=== PATIENT | female | born 1935 | race Caucasian/White ===

== ENCOUNTER 2018-08-25 12:28 | Inpatient (IN) ==
[2018-08-25] MEDS ORDERED: MORPHINE 4 MG/1 ML VIAL IV STA (14:07)
[2018-08-25] MEDS ORDERED: FUROSEMIDE 100 MG/10 ML VIAL IV STA (14:07)
[2018-08-25] MEDS ORDERED: ONDANSETRON 4 MG/2 ML VIAL IV STA (14:07)
[2018-08-25] MEDS ORDERED: DIPH/TET/ACEL PERT BOOSTER VACCINE 0.5 ML VIAL IM ONE (14:07)
[2018-08-25] MEDS ORDERED: ALBUTEROL/IPRATROPIUM 3 ML NEB RESP TX STA (14:07)
[2018-08-25] MEDS ORDERED: ceFAZolin 1,000 MG VIAL IM ONE (14:07)
[2018-08-25 16:03] LABS: Apearance,Urine CLEAR (Clear); Bilirubin,Urine Negative (Negative); Blood, Urine Negative (Negative); Glucose,Urine (UA) Negative (Negative); Hyaline Casts,Urine 3 /LPF (0-3); Ketones,Urine Negative (Negative); Mucus,Urine Occasional /LPF (Occasional); Nitrite,Urine Negative (Negative); Protein,Urine Negative; RBC,Urine <1 /HPF (0-4); Squamous Epithelial Cell,Urine Occasional /HPF (0-10); Urine Color Yellow (Yellow); Urine Urobilinogen < 2.0 EU/DL (0.2-1.0); WBC,Urine <1 /HPF (0-6)
[2018-08-25 16:15] LABS: INR 2.1
[2018-08-25 16:17] LABS: Basophils % 0.3 % (0.0-0.8); Eosinophils # 0.2 10*3/uL (0.0-0.87); Eosinophils % 1.8 % (0.00-10.9); Hematocrit 27.3 VOL% (35.7-47.0); Immature Granulocytes % 2.1 %; Immature Granulocytes Absolute 0.23 #; Lymphocytes # 0.8 10*3/uL (1.4-4.0); Lymphocytes % 6.9 % (21.3-54.2); Mean Corpuscular HGB Conc 27.8 GM/DL (32-36); Mean Corpuscular Hemoglobin 28 PG (27-34); Mean Corpuscular Volume 99.6 FL (87-102); Mean Platelet Volume 11.7 FL (9.6-12.0); Monocytes % 9.4 % (1.7-12.7); NRBC # 0.02 10*3/uL; Neutrophils # 8.7 10*3/uL (1.4-7.4); Neutrophils % 79.5 % (38.7-73.9); Platelet Count 159 T/CUMM (130-400); Red Blood Count 2.74 MC/CUMM (3.8-5.5); Red Cell Distribution Width 17.5 % (9.3-17.3); White Blood Count 10.9 T/CUMM (4-12)
[2018-08-25 16:20] LABS: Hemoglobin 7.6 GM/DL (12.0-16.0)
[2018-08-25 16:21] LABS: PT Patient Result 22.8 SECS
[2018-08-25 16:27] LABS: Hypochromasia 1+; Microcytosis 1+
[2018-08-25 16:28] LABS: Platelet Estimate Adequate
[2018-08-25 16:36] LABS: Macrocytosis 1+
[2018-08-25 17:30] LABS: Albumin 3.3 G/DL (3.4-5.0); Bilirubin,Total 0.8 MG/DL (0.2-1.0); Calcium 8.5 MG/DL (8.5-10.1); Total Protein 7.4 G/DL (6.4-8.3)
[2018-08-25] MEDS ORDERED: ONDANSETRON 4 MG/2 ML VIAL IV PRN (18:24)
[2018-08-25] MEDS ORDERED: DEXTROSE 50% 25 GM/50 ML SYRINGE IV PRN (18:24)
[2018-08-25] MEDS ORDERED: GLUCAGON 1 MG VIAL IM PRN ×2 (18:24→20:35)
[2018-08-25] MEDS ORDERED: MAGNESIUM SULF RIDER 4 GM in PREMIX 1 EACH IV PRN (18:24)
[2018-08-25] MEDS ORDERED: MAGNESIUM SULF RIDER 2 GM in PREMIX 1 EACH IV PRN (18:24)
[2018-08-25] MEDS ORDERED: DEXTROSE 50% 25 GM/50 ML VIAL IV PRN (20:35)
[2018-08-25] MEDS ORDERED: SIMVASTATIN 20 MG TABLET PO SCH (21:00)
[2018-08-25] MEDS: DICLOFENAC 1% GEL 100 GM TUBE TOP SCH (21:50)
[2018-08-25] MEDS: DABIGATRAN 75 MG CAPSULE PO SCH (21:50)
[2018-08-25] MEDS: CARVEDILOL 3.125 MG TABLET PO SCH (21:50)
[2018-08-25] MEDS: INSULIN REGULAR 100 UNIT/ML SUBCUT SCH (21:50)
[2018-08-25] MEDS: GABAPENTIN 400 MG CAPSULE PO SCH (21:50)
[2018-08-25] MEDS: fentaNYL 25 MCG/HR PATCH TRANSDERM SCH (21:53)
[2018-08-26] MEDS ORDERED: LEVOTHYROXINE 150 MCG TABLET PO SCH (07:00)
[2018-08-26 07:24] LABS: Basophils % 0.2 % (0.0-0.8); Eosinophils # 0.3 10*3/uL (0.0-0.87); Eosinophils % 2.4 % (0.00-10.9); Hematocrit 27.1 VOL% (35.7-47.0); Immature Granulocytes % 1.9 %; Lymphocytes % 9.5 % (21.3-54.2); Mean Corpuscular Hemoglobin 28 PG (27-34); Mean Corpuscular Volume 99.3 FL (87-102); Mean Platelet Volume 10.9 FL (9.6-12.0); Monocytes % 8.9 % (1.7-12.7); NRBC # 0.02 10*3/uL; Neutrophils # 8.3 10*3/uL (1.4-7.4); Neutrophils % 77.1 % (38.7-73.9); Platelet Count 152 T/CUMM (130-400); Red Blood Count 2.73 MC/CUMM (3.8-5.5); Red Cell Distribution Width 17.3 % (9.3-17.3); White Blood Count 10.7 T/CUMM (4-12)
[2018-08-26 07:26] LABS: Hemoglobin 7.6 GM/DL (12.0-16.0)
[2018-08-26 07:36] LABS: Calcium 8.7 MG/DL (8.5-10.1); Osmolality,Calculated 301.7 MOS/KG (273-304); Potassium 4.9 MMOL/L (3.5-5.1)
[2018-08-26 07:56] LABS: Hypochromasia 1+; Platelet Estimate Adequate
[2018-08-26 07:57] LABS: Microcytosis Slight
[2018-08-26] MEDS ORDERED: DEXTROSE 50% 25 GM/50 ML VIAL IV PRN (07:57)
[2018-08-26] MEDS ORDERED: GLUCAGON 1 MG VIAL IM PRN (07:57)
[2018-08-26] MEDS ORDERED: RALOXIFENE 60 MG TABLET PO SCH (09:00)
[2018-08-26] MEDS ORDERED: PANTOPRAZOLE 40 MG TABLET PO SCH (09:00)
[2018-08-26] MEDS ORDERED: ARIPiprazole 2 MG TABLET PO SCH (09:00)
[2018-08-26] MEDS ORDERED: SERTRALINE 100 MG TABLET PO SCH (09:00)
[2018-08-26] MEDS ORDERED: POTASSIUM CHLORIDE 20 MEQ TABLET PO SCH (09:00)
[2018-08-26] MEDS ORDERED: LOSARTAN 50 MG TABLET PO SCH (09:00)
[2018-08-26] MEDS: DABIGATRAN 75 MG CAPSULE PO SCH (09:16)
[2018-08-26] MEDS: GABAPENTIN 400 MG CAPSULE PO SCH (09:17)
[2018-08-26] MEDS: FUROSEMIDE 40 MG/4 ML VIAL IV SCH ×2 (09:18→15:16)
[2018-08-26] MEDS: CARVEDILOL 3.125 MG TABLET PO SCH (09:18)
[2018-08-26] MEDS: INSULIN REGULAR 100 UNIT/ML SUBCUT SCH ×4 (09:18→21:08)
[2018-08-26] MEDS: DICLOFENAC 1% GEL 100 GM TUBE TOP SCH ×4 (09:19→21:23)
[2018-08-26] MEDS ORDERED: ASPIRIN CHEW 81 MG TABLET PO ONE (10:44)
[2018-08-26] MEDS ORDERED: NITROGLYCERIN SL 0.4 MG TABLET SL PRN (10:44)
[2018-08-26] MEDS ORDERED: ASPIRIN 325 MG TABLET ONE (10:47)
[2018-08-26] MEDS ORDERED: FUROSEMIDE 40 MG/4 ML VIAL IV ONE (10:54)
[2018-08-26 11:21] LABS: ABG Base Excess 5.3 MMOL/L (-2.5-2.5); ABG HCO3 29.1 MMOL/L (20-26); ABG Oxygen Saturation 91.6 % (95-100); ABG PH 7.287 (7.35-7.45); ABG PO2 66.6 MM HG (80-95); ABG TCO2 31.6 MMOL/L (23-27)
[2018-08-26 11:24] LABS: ABG PCO2 70.1 MM HG (35-48)
[2018-08-26] MEDS: PIPERACILLIN/TAZOBACTAM 3,375 MG in SODIUM CHLORIDE 0.9% 100 ML IV SCH ×2 (12:29→23:39)
[2018-08-26 14:13] LABS: Apearance,Urine CLEAR (Clear); Bacteria,Urine Occasional /HPF (Few); Bilirubin,Urine Negative (Negative); Blood, Urine Moderate mg/dL (Negative); Glucose,Urine (UA) Negative (Negative); Hyaline Casts,Urine 3 /LPF (0-3); Ketones,Urine Negative (Negative); Mucus,Urine Occasional /LPF (Occasional); Nitrite,Urine Negative (Negative); Protein,Urine Negative; RBC,Urine 16 /HPF (0-4); Squamous Epithelial Cell,Urine Occasional /HPF (0-10); Urine Color Yellow (Yellow); Urine Specific Gravity 1.009 (1.001-1.035); Urine Urobilinogen < 2.0 EU/DL (0.2-1.0); WBC,Urine 7 /HPF (0-6)
[2018-08-26] MEDS ORDERED: ENOXAPARIN 100 MG/ML SYRINGE SUBCUT SCH (14:30)
[2018-08-26] MEDS: ENOXAPARIN 100 MG/ML SYRINGE SUBCUT SCH (15:15)
[2018-08-26 16:08] LABS: ABG Base Excess 7.6 MMOL/L (-2.5-2.5); ABG HCO3 34.6 MMOL/L (20-26); ABG Oxygen Saturation 92.7 % (95-100); ABG PCO2 66.5 MM HG (35-48); ABG PH 7.334 (7.35-7.45); ABG PO2 71.4 MM HG (80-95); ABG TCO2 36.6 MMOL/L (23-27); Allen Test Positive; Pt O2 Delivery Device BIPAP
[2018-08-26] MEDS ORDERED: NOREPINEPHRINE 8 MG in SODIUM CHLORIDE 0.9% 242 ML IV PRN (23:41)
[2018-08-26 23:45] LABS: Hematocrit 23.6 VOL% (35.7-47.0); Hemoglobin 6.6 GM/DL (12.0-16.0)
[2018-08-27] MEDS ORDERED: SODIUM CHLORIDE 0.9% 1,000 ML IV PRN (00:02)
[2018-08-27 06:26] LABS: Basophils % 0.2 % (0.0-0.8); Eosinophils # 0.2 10*3/uL (0.0-0.87); Eosinophils % 2.5 % (0.00-10.9); Hematocrit 28.8 VOL% (35.7-47.0); Hemoglobin 8.3 GM/DL (12.0-16.0); Immature Granulocytes % 4.4 %; Lymphocytes # 0.9 10*3/uL (1.4-4.0); Lymphocytes % 9.4 % (21.3-54.2); Mean Corpuscular HGB Conc 28.8 GM/DL (32-36); Mean Corpuscular Hemoglobin 28 PG (27-34); Mean Corpuscular Volume 97.6 FL (87-102); Mean Platelet Volume 10.7 FL (9.6-12.0); Monocytes # 0.9 10*3/uL (0.11-0.8); Monocytes % 9.9 % (1.7-12.7); NRBC # 0.02 10*3/uL; Neutrophils # 6.7 10*3/uL (1.4-7.4); Neutrophils % 73.6 % (38.7-73.9); Platelet Count 148 T/CUMM (130-400); Red Blood Count 2.95 MC/CUMM (3.8-5.5); Red Cell Distribution Width 18.4 % (9.3-17.3); White Blood Count 9.1 T/CUMM (4-12)
[2018-08-27] MEDS: LEVOTHYROXINE 100 MCG VIAL IV SCH (06:26)
[2018-08-27 06:32] LABS: INR 1.7
[2018-08-27 06:41] LABS: Calcium 8.4 MG/DL (8.5-10.1); Osmolality,Calculated 299.8 MOS/KG (273-304); Potassium 4.8 MMOL/L (3.5-5.1)
[2018-08-27 07:11] LABS: % Iron Saturation 14.8 % (18-50); Ferritin 64.7 ng/ml (8-252)
[2018-08-27 07:21] LABS: Hypochromasia 1+; Microcytosis Slight; Platelet Estimate Adequate
[2018-08-27] MEDS: INSULIN REGULAR 100 UNIT/ML SUBCUT SCH ×4 (07:33→20:24)
[2018-08-27 08:10] LABS: Folate 11.4 NG/ML (5.4-24.0)
[2018-08-27] MEDS: PANTOPRAZOLE 40 MG VIAL IV SCH (08:24)
[2018-08-27] MEDS: FUROSEMIDE 40 MG/4 ML VIAL IV SCH ×2 (08:24→16:33)
[2018-08-27] MEDS: DICLOFENAC 1% GEL 100 GM TUBE TOP SCH ×4 (08:27→20:25)
[2018-08-27] MEDS: PIPERACILLIN/TAZOBACTAM 3,375 MG in SODIUM CHLORIDE 0.9% 100 ML IV SCH ×2 (12:51→23:43)
[2018-08-27] MEDS: ENOXAPARIN 100 MG/ML SYRINGE SUBCUT SCH (15:32)
[2018-08-28 04:56] LABS: Basophils % 0.2 % (0.0-0.8); Eosinophils # 0.3 10*3/uL (0.0-0.87); Eosinophils % 3.3 % (0.00-10.9); Hematocrit 28.1 VOL% (35.7-47.0); Hemoglobin 8.2 GM/DL (12.0-16.0); Immature Granulocytes % 2.3 %; Immature Granulocytes Absolute 0.22 #; Lymphocytes % 10.1 % (21.3-54.2); Mean Corpuscular HGB Conc 29.2 GM/DL (32-36); Mean Corpuscular Hemoglobin 28 PG (27-34); Mean Corpuscular Volume 96.2 FL (87-102); Mean Platelet Volume 11.1 FL (9.6-12.0); Monocytes % 10.6 % (1.7-12.7); Neutrophils # 7.1 10*3/uL (1.4-7.4); Neutrophils % 73.5 % (38.7-73.9); Platelet Count 154 T/CUMM (130-400); Red Blood Count 2.92 MC/CUMM (3.8-5.5); Red Cell Distribution Width 18.2 % (9.3-17.3); White Blood Count 9.7 T/CUMM (4-12)
[2018-08-28 05:09] LABS: Calcium 8.2 MG/DL (8.5-10.1); Osmolality,Calculated 301.7 MOS/KG (273-304); Potassium 3.8 MMOL/L (3.5-5.1)
[2018-08-28] MEDS: LEVOTHYROXINE 100 MCG VIAL IV SCH (06:14)
[2018-08-28] MEDS: INSULIN REGULAR 100 UNIT/ML SUBCUT SCH ×4 (08:11→20:42)
[2018-08-28] MEDS: DICLOFENAC 1% GEL 100 GM TUBE TOP SCH ×4 (08:17→20:42)
[2018-08-28] MEDS: PANTOPRAZOLE 40 MG VIAL IV SCH (08:17)
[2018-08-28] MEDS: FUROSEMIDE 40 MG/4 ML VIAL IV SCH (08:18)
[2018-08-28] MEDS: PIPERACILLIN/TAZOBACTAM 3,375 MG in SODIUM CHLORIDE 0.9% 100 ML IV SCH ×2 (12:35→23:47)
[2018-08-28] MEDS: ENOXAPARIN 100 MG/ML SYRINGE SUBCUT SCH (15:24)
[2018-08-28] MEDS: FUROSEMIDE 40 MG TABLET PO SCH (15:24)
[2018-08-28] MEDS: fentaNYL 25 MCG/HR PATCH TRANSDERM SCH (23:58)
[2018-08-29] MEDS: LEVOTHYROXINE 100 MCG VIAL IV SCH (06:01)
[2018-08-29] MEDS: INSULIN REGULAR 100 UNIT/ML SUBCUT SCH ×2 (07:28→12:18)
[2018-08-29] MEDS: DICLOFENAC 1% GEL 100 GM TUBE TOP SCH ×2 (08:34→12:26)
[2018-08-29] MEDS: PANTOPRAZOLE 40 MG VIAL IV SCH (08:34)
[2018-08-29] MEDS: FUROSEMIDE 40 MG TABLET PO SCH (08:34)
[2018-08-29 12:14] VITALS: BP 160/77
[2018-08-29] MEDS: PIPERACILLIN/TAZOBACTAM 3,375 MG in SODIUM CHLORIDE 0.9% 100 ML IV SCH (12:23)
[2018-08-29] MEDS ORDERED: DABIGATRAN 75 MG CAPSULE PO SCH (13:30)
== END 2018-08-29 15:28 | disposition swing bed (61) | DRG 291 ==
LOC: N.ED 12:28 → SUATTDRO 18:25 → N.EDINP 18:25 → SUPCPDRO 18:25 → N.5E 19:49 → N.CC 08-26 11:24 → N.4E 08-27 19:06
PROVIDERS: ADMIT Internal Medicine; ATTEND Internal Medicine

== ENCOUNTER 2019-07-27 14:59 | Inpatient (IN) ==
[2019-07-27] MEDS ORDERED: FUROSEMIDE 40 MG/4 ML VIAL IV STA (15:46)
[2019-07-27 15:57] LABS: Basophils % 0.2 % (0.0-0.8); Eosinophils # 0.3 10*3/uL (0.0-0.87); Eosinophils % 3.2 % (0.00-10.9); Hematocrit 38.6 VOL% (35.7-47.0); Immature Granulocytes % 1.6 %; Immature Granulocytes Absolute 0.14 #; Lymphocytes # 0.8 10*3/uL (1.4-4.0); Lymphocytes % 9.3 % (21.3-54.2); Mean Corpuscular HGB Conc 28.5 GM/DL (32-36); Mean Corpuscular Volume 99.2 FL (87-102); Monocytes % 9.7 % (1.7-12.7); Platelet Count 140 T/CUMM (130-400); Red Blood Count 3.89 MC/CUMM (3.8-5.5); Red Cell Distribution Width 15.7 % (9.3-17.3); White Blood Count 8.8 T/CUMM (4-12)
[2019-07-27 16:15] LABS: PT Patient Result 10.5 SECS (9.6-12.2); Partial Thromboplastin Time 25.8 SECS (20.8-36.0)
[2019-07-27 16:20] LABS: Albumin 3.5 G/DL (3.4-5.0); Bilirubin,Total 0.7 MG/DL (0.2-1.0); Calcium 8.7 MG/DL (8.5-10.1); Osmolality,Calculated 286.3 MOS/KG (273-304); Total Protein 7.2 G/DL (6.4-8.3)
[2019-07-27 16:47] LABS: ABG Base Excess 5.6 MMOL/L (-2.5-2.5); ABG Oxygen Saturation 72.9 % (95-100); ABG PCO2 64.5 MM HG (35-48); ABG PH 7.325 (7.35-7.45); ABG PO2 41.5 MM HG (80-95); ABG TCO2 30.6 MMOL/L (23-27)
[2019-07-27] MEDS ORDERED: LEVOFLOXACIN INJ 500 MG in PREMIX 1 EACH IV STA (16:54)
[2019-07-27] MEDS ORDERED: DEXTROSE 10% 250 ML BAG IV PRN (20:20)
[2019-07-27] MEDS ORDERED: GLUCAGON 1 MG VIAL IM PRN (20:20)
[2019-07-27] MEDS: ENOXAPARIN 40 MG/0.4 ML SYRINGE SUBCUT SCH (21:26)
[2019-07-27] MEDS: PANTOPRAZOLE 40 MG VIAL IV SCH (21:27)
[2019-07-27] MEDS: INSULIN LISPRO 100 UNIT/ML SUBCUT SCH (21:27)
[2019-07-27] MEDS: SIMVASTATIN 20 MG TABLET PO SCH (21:32)
[2019-07-27] MEDS: GABAPENTIN 400 MG CAPSULE PO SCH (21:32)
[2019-07-28] MEDS ORDERED: ALBUTEROL/IPRATROPIUM 3 ML NEB RESP TX PRN (04:59)
[2019-07-28 06:15] LABS: Calcium 8.9 MG/DL (8.5-10.1); Osmolality,Calculated 275.8 MOS/KG (273-304)
[2019-07-28] MEDS: LEVOTHYROXINE 150 MCG TABLET PO SCH (06:37)
[2019-07-28 06:38] LABS: Basophils % 0.4 % (0.0-0.8); Eosinophils # 0.3 10*3/uL (0.0-0.87); Eosinophils % 4.1 % (0.00-10.9); Hematocrit 34.6 VOL% (35.7-47.0); Immature Granulocytes % 1.4 %; Immature Granulocytes Absolute 0.11 #; Lymphocytes # 0.9 10*3/uL (1.4-4.0); Lymphocytes % 11.3 % (21.3-54.2); Mean Corpuscular HGB Conc 29.2 GM/DL (32-36); Mean Corpuscular Volume 96.9 FL (87-102); Mean Platelet Volume 11.2 FL (9.6-12.0); Monocytes % 11.3 % (1.7-12.7); Neutrophils % 71.5 % (38.7-73.9); Platelet Count 114 T/CUMM (130-400); Red Blood Count 3.57 MC/CUMM (3.8-5.5); Red Cell Distribution Width 15.7 % (9.3-17.3); White Blood Count 7.6 T/CUMM (4-12)
[2019-07-28 06:40] LABS: Hemoglobin 10.1 GM/DL (12.0-16.0)
[2019-07-28] MEDS ORDERED: FUROSEMIDE 40 MG/4 ML VIAL IV SCH ×2 (08:00→11:30)
[2019-07-28 08:06] LABS: Apearance,Urine CLEAR (Clear); Bilirubin,Urine Negative (Negative); Blood, Urine Negative (Negative); Glucose,Urine (UA) Negative (Negative); Ketones,Urine Negative (Negative); Mucus,Urine Occasional /LPF (Occasional); Nitrite,Urine Negative (Negative); Protein,Urine Negative; RBC,Urine 2 /HPF (0-4); Squamous Epithelial Cell,Urine Occasional /HPF (0-10); Urine Color Yellow (Yellow); Urine Specific Gravity 1.009 (1.001-1.035); Urine Urobilinogen < 2.0 EU/DL (0.2-1.0); WBC,Urine <1 /HPF (0-6)
[2019-07-28] MEDS ORDERED: ENOXAPARIN 40 MG/0.4 ML SYRINGE SUBCUT SCH (09:00)
[2019-07-28] MEDS: INSULIN LISPRO 100 UNIT/ML SUBCUT SCH ×4 (09:23→21:15)
[2019-07-28] MEDS: ARIPiprazole 2 MG TABLET PO SCH (09:47)
[2019-07-28] MEDS: GABAPENTIN 400 MG CAPSULE PO SCH ×3 (09:47→21:15)
[2019-07-28] MEDS: SERTRALINE 100 MG TABLET PO SCH (09:48)
[2019-07-28 11:41] LABS: ABG Base Excess 7.1 MMOL/L (-2.5-2.5); ABG HCO3 30.8 MMOL/L (20-26); ABG Oxygen Saturation 90.4 % (95-100); ABG PCO2 56.6 MM HG (35-48); ABG PH 7.383 (7.35-7.45); ABG PO2 57.4 MM HG (80-95); ABG TCO2 30.7 MMOL/L (23-27); Allen Test Positive; Pt O2 Delivery Device BIPAP
[2019-07-28] MEDS ORDERED: NITROGLYCERIN SL 0.4 MG TABLET SL PRN (14:24)
[2019-07-28] MEDS: methylPREDNISolone SOD SUC 40 MG/1 ML VIAL IV SCH ×2 (15:19→23:33)
[2019-07-28] MEDS: FUROSEMIDE 100 MG/10 ML VIAL IV SCH (15:19)
[2019-07-28] MEDS: LEVOFLOXACIN INJ 250 MG in PREMIX 1 EACH IV SCH (17:19)
[2019-07-28] MEDS: PANTOPRAZOLE 40 MG VIAL IV SCH (17:21)
[2019-07-28] MEDS: SIMVASTATIN 20 MG TABLET PO SCH (21:15)
[2019-07-28] MEDS: ENOXAPARIN 40 MG/0.4 ML SYRINGE SUBCUT SCH (21:15)
[2019-07-29 04:57] LABS: Basophils % 0.3 % (0.0-0.8); Immature Granulocytes % 2.1 %; Immature Granulocytes Absolute 0.14 #; Lymphocytes # 0.6 10*3/uL (1.4-4.0); Lymphocytes % 8.1 % (21.3-54.2); Mean Corpuscular HGB Conc 29.1 GM/DL (32-36); Mean Corpuscular Volume 95.9 FL (87-102); Mean Platelet Volume 11.3 FL (9.6-12.0); Monocytes % 1.6 % (1.7-12.7); Neutrophils % 87.9 % (38.7-73.9); Platelet Count 138 T/CUMM (130-400); Red Cell Distribution Width 15.2 % (9.3-17.3); White Blood Count 6.8 T/CUMM (4-12)
[2019-07-29 05:12] LABS: Hematocrit 37.6 VOL% (35.7-47.0); Hemoglobin 10.9 GM/DL (12.0-16.0)
[2019-07-29 05:23] LABS: Calcium 9.5 MG/DL (8.5-10.1); Osmolality,Calculated 283.7 MOS/KG (273-304)
[2019-07-29] MEDS: LEVOTHYROXINE 150 MCG TABLET PO SCH (06:51)
[2019-07-29] MEDS: ARIPiprazole 2 MG TABLET PO SCH (09:38)
[2019-07-29] MEDS: SERTRALINE 100 MG TABLET PO SCH (09:38)
[2019-07-29] MEDS: ASPIRIN EC 81 MG TABLET PO SCH (09:38)
[2019-07-29] MEDS: FUROSEMIDE 100 MG/10 ML VIAL IV SCH ×2 (09:38→16:27)
[2019-07-29] MEDS: GABAPENTIN 400 MG CAPSULE PO SCH ×3 (09:38→21:06)
[2019-07-29] MEDS: methylPREDNISolone SOD SUC 40 MG/1 ML VIAL IV SCH ×2 (09:39→16:27)
[2019-07-29] MEDS: ursodioL 300 MG CAPSULE PO SCH ×2 (09:58→21:07)
[2019-07-29] MEDS: INSULIN LISPRO 100 UNIT/ML SUBCUT SCH ×4 (10:07→21:08)
[2019-07-29] MEDS ORDERED: ceFAZolin 1,000 MG VIAL IRRIG ONE (13:41)
[2019-07-29] MEDS ORDERED: ceFAZolin 1,000 MG in SYRINGE 1 EACH IV ONE (13:41)
[2019-07-29] MEDS: LEVOFLOXACIN INJ 250 MG in PREMIX 1 EACH IV SCH (18:43)
[2019-07-29] MEDS: PANTOPRAZOLE 40 MG VIAL IV SCH (18:44)
[2019-07-29] MEDS: SIMVASTATIN 20 MG TABLET PO SCH (21:07)
[2019-07-29] MEDS: ENOXAPARIN 40 MG/0.4 ML SYRINGE SUBCUT SCH (21:08)
[2019-07-30] MEDS: methylPREDNISolone SOD SUC 40 MG/1 ML VIAL IV SCH ×4 (00:23→16:39)
[2019-07-30 04:38] LABS: Basophils % 0.3 % (0.0-0.8); Hematocrit 35.1 VOL% (35.7-47.0); Hemoglobin 10.8 GM/DL (12.0-16.0); Immature Granulocytes % 1.1 %; Immature Granulocytes Absolute 0.08 #; Lymphocytes # 0.4 10*3/uL (1.4-4.0); Lymphocytes % 5.8 % (21.3-54.2); Mean Corpuscular HGB Conc 30.8 GM/DL (32-36); Mean Corpuscular Volume 93.1 FL (87-102); Mean Platelet Volume 11.7 FL (9.6-12.0); Monocytes % 2.8 % (1.7-12.7); Platelet Count 153 T/CUMM (130-400); Red Blood Count 3.77 MC/CUMM (3.8-5.5); Red Cell Distribution Width 15.2 % (9.3-17.3); White Blood Count 7.1 T/CUMM (4-12)
[2019-07-30 05:05] LABS: Calcium 9.1 MG/DL (8.5-10.1); Osmolality,Calculated 285.7 MOS/KG (273-304)
[2019-07-30] MEDS ORDERED: VASOPRESSIN 20 UNITS/ML VIAL ONE (07:41)
[2019-07-30] MEDS: INSULIN LISPRO 100 UNIT/ML SUBCUT SCH ×4 (08:36→21:06)
[2019-07-30] MEDS ORDERED: LIDOCAINE 1% 20 ML VIAL ONE (10:43)
[2019-07-30] MEDS ORDERED: HEPARIN/NACL 0.9% 2 UNITS/ML 500 ML IV ONE ×2 (10:43→10:44)
[2019-07-30] MEDS ORDERED: ceFAZolin 1,000 MG VIAL ONE (11:07)
[2019-07-30] MEDS ORDERED: HEPARIN 10,000 UNIT/10 ML VIAL ONE (11:56)
[2019-07-30] MEDS ORDERED: propofoL 200 MG/20 ML VIAL IV ONE (11:56)
[2019-07-30] MEDS ORDERED: GLYCOPYRROLATE 0.4 MG/2 ML VIAL ONE (11:56)
[2019-07-30] MEDS ORDERED: SEVOFLURANE 1 UNIT/15 MINUTE INH ONE (11:56)
[2019-07-30] MEDS ORDERED: LIDOCAINE 2% 5 ML VIAL ONE (11:56)
[2019-07-30] MEDS ORDERED: ETOMIDATE 40 MG/20 ML VIAL IV ONE (11:56)
[2019-07-30] MEDS: GABAPENTIN 400 MG CAPSULE PO SCH ×4 (14:36→20:48)
[2019-07-30] MEDS: ARIPiprazole 2 MG TABLET PO SCH (14:37)
[2019-07-30] MEDS: SERTRALINE 100 MG TABLET PO SCH (14:37)
[2019-07-30] MEDS: ursodioL 300 MG CAPSULE PO SCH ×2 (14:37→20:48)
[2019-07-30] MEDS: FUROSEMIDE 100 MG/10 ML VIAL IV SCH ×3 (14:37→18:07)
[2019-07-30] MEDS: LEVOTHYROXINE 150 MCG TABLET PO SCH (14:46)
[2019-07-30] MEDS: PANTOPRAZOLE 40 MG VIAL IV SCH (18:05)
[2019-07-30] MEDS: LEVOFLOXACIN INJ 250 MG in PREMIX 1 EACH IV SCH (18:05)
[2019-07-30] MEDS: ASPIRIN EC 81 MG TABLET PO SCH (18:07)
[2019-07-30] MEDS: SIMVASTATIN 20 MG TABLET PO SCH (20:48)
[2019-07-30] MEDS: ENOXAPARIN 40 MG/0.4 ML SYRINGE SUBCUT SCH (20:49)
[2019-07-31 04:56] LABS: Hematocrit 35.7 VOL% (35.7-47.0); Hemoglobin 10.9 GM/DL (12.0-16.0); Mean Corpuscular HGB Conc 30.5 GM/DL (32-36); Mean Corpuscular Volume 92.5 FL (87-102); Mean Platelet Volume 11.3 FL (9.6-12.0); Platelet Count 160 T/CUMM (130-400); Red Blood Count 3.86 MC/CUMM (3.8-5.5); Red Cell Distribution Width 15.1 % (9.3-17.3); White Blood Count 8.4 T/CUMM (4-12)
[2019-07-31 04:57] LABS: Basophils % 0.1 % (0.0-0.8); Immature Granulocytes % 1.2 %; Lymphocytes # 0.3 10*3/uL (1.4-4.0); Lymphocytes % 3.8 % (21.3-54.2); Monocytes % 3.6 % (1.7-12.7); Neutrophils % 91.3 % (38.7-73.9)
[2019-07-31 05:26] LABS: Calcium 8.7 MG/DL (8.5-10.1); Osmolality,Calculated 289.7 MOS/KG (273-304)
[2019-07-31 05:28] LABS: Band Neutrophils 3 % (0-10); Hypochromasia 1+; Lymphocytes 5 % (20-55); Microcytosis Slight; Segmented Neutrophils 89 % (50-85); Total Cells Counted 100
[2019-07-31 05:29] LABS: Platelet Estimate Adequate
[2019-07-31] MEDS: methylPREDNISolone SOD SUC 40 MG/1 ML VIAL IV SCH ×2 (06:17)
[2019-07-31] MEDS: LEVOTHYROXINE 150 MCG TABLET PO SCH (06:17)
[2019-07-31] MEDS: FUROSEMIDE 100 MG/10 ML VIAL IV SCH (08:26)
[2019-07-31] MEDS: ursodioL 300 MG CAPSULE PO SCH (08:26)
[2019-07-31] MEDS: INSULIN LISPRO 100 UNIT/ML SUBCUT SCH (08:26)
[2019-07-31] MEDS: ARIPiprazole 2 MG TABLET PO SCH (08:26)
[2019-07-31] MEDS: SERTRALINE 100 MG TABLET PO SCH (08:27)
[2019-07-31] MEDS: GABAPENTIN 400 MG CAPSULE PO SCH (08:27)
[2019-07-31] MEDS: ASPIRIN EC 81 MG TABLET PO SCH (08:27)
[2019-07-31] MEDS ORDERED: BISACODYL 5 MG TABLET PO PRN (08:57)
[2019-07-31 12:27] VITALS: BP 156/81
== END 2019-07-31 13:16 | DRG 228 ==
LOC: EDBD → EDUNIT# → N.ED 14:59 → N.EDINP 17:37 → N.TELES 18:19
PROVIDERS: ADMIT Internal Medicine; ATTEND Internal Medicine
PROC: CLMICRA (2019-07-30 11:45)